=== PATIENT | female | born 1980 | race Two or more races ===

== ENCOUNTER 2016-07-04 01:48 | Emergency (ER) | payer OTHER ==
--- NOTE | 2016-07-04 02:30 | CPEKG ---
Heart Rate: 114 RR Interval: 526 P-R Interval: 140 QRSD Interval: 88 QT Interval: 340 QTC Interval: 469 P Ewing: 77 QRS Ewing: 0 T Wave Ewing: 58 EKG Severity - ABNORMAL ECG - EKG Impression: SINUS TACHYCARDIA Electronically Signed By: Elda Sullivan 04-Jul-2016 06:37:50
[2016-07-04 02:36] LABS: ANION GAP 14 mEq/L (8-16); CALCIUM 9.2 mg/dL (8.5-10.4); CARBON DIOXIDE 19 mEq/l (22-31); CHLORIDE 109 mEq/L (97-110); CREATININE 0.5 mg/dL (0.6-1.0); GLOMERULAR FILTRATION RATE > 60; GLUCOSE 118 mg/dL (70-100); POTASSIUM 4.4 mEq/L (3.5-5.2); SODIUM 142 mEq/L (134-144)
[2016-07-04] MEDS ORDERED: ONDANSETRON 4 MG/2 ML VIAL ONE (02:43)
[2016-07-04 02:44] LABS: % IMMATURE GRANULYOCYTES 0.2 % (0.0-1.1); ABSOLUTE IMMATURE GRANULOCYTES 0.02 10^3/uL (0.00-0.10); ADD DIFF? NO; ADD MORPH? NO; ADD SCAN? NO; ATYPICAL LYMPHOCYTE FLAG 0 (0-99); FRAGMENT RBC FLAG 20 (0-99); HEMATOCRIT 33.6 % (38.0-47.0); HEMOGLOBIN 10.4 g/dL (12.6-16.3); LEFT SHIFT FLG 0 (0-99); LIPEMIA HEMOLYSIS FLAG 80 (0-99); MEAN CELL HEMOGLOBIN 22.5 pg (27.9-34.1); MEAN CELL VOLUME 72.7 fL (81.5-99.8); MEAN PLATELET VOLUME 9.9 fL (8.7-11.7); PLATELET CLUMPS FLAG 10 (0-99); PLATELET COUNT 250 10^3/uL (150-400); RED BLOOD CELL COUNT 4.62 10^6/uL (4.18-5.33); RED CELL DISTRIBUTION WIDTH 18.8 % (11.5-15.2)
[2016-07-04 02:48] LABS: TROPONIN I 0.018 ng/mL (0-0.034)
[2016-07-04] MEDS ORDERED: ONDANSETRON 4 MG/2 ML VIAL IVP ONE (02:54)
[2016-07-04 03:48] LABS: COLOR PALE YELLOW; LEUKOCYTE ESTERASE,URINE NEGATIVE (NEGATIVE); NITRITE,URINE NEGATIVE (NEGATIVE)
[2016-07-04] MEDS ORDERED: IOPAMIDOL (ISOVUE-300) 50 ML VIAL IV ONE (03:54)
--- NOTE | 2016-07-04 04:14 | EDPHY ---
[id number] 02:21 HPI/ROS: Faroese [employer] interpreter used. HPI The patient presents with 3 days of sharp abdominal and back pain which is left- sided and has been intermittent though was worse tonight to the point that she could not sleep and this is what brought her in. She says the pain started slowly and began in her back but is now radiating forwards toward her abdomen. She cannot describe any alleviating or exacerbating factors. She has no history of similar. She does not have any dysuria or hematuria. She has not had a fever, shortness of breath, chest pain or cough. She was seen at [facility] yesterday and did not have testing performed.. REVIEW OF SYSTEMS Constitutional: No fever, no chills. Eyes: No discharge. ENT: No sore throat. Cardiovascular: No chest pain, no palpitations. Respiratory: No cough, no shortness of breath. Gastrointestinal: See HPI Genitourinary: No hematuria. Musculoskeletal: No back pain. Skin: No rashes. Neurological: No headache. PMHx: Healthy, no diabetes, no hypertension Soc Hx: No alcohol use PHYSICAL General Appearance: Alert, no distress Eyes: Pupils equal and round no pallor or injection ENT, Mouth: Mucous membranes moist Respiratory: There are no retractions, lungs are clear to auscultation Cardiovascular: Regular rate and rhythm Gastrointestinal: Abdomen is soft and non-tender, no masses, bowel sounds normal Back: Left-sided flank tenderness, no rash Neurological: A&O, moves all extremities Skin: Warm and dry, no rashes Musculoskeletal: Neck is supple non tender Extremities: symmetrical, full range of motion Psychiatric: Patient is oriented X 3, there is no agitation Source: Patient Exam Limitations: No limitations - Personal History LMP (Females 10-55): 15-21 Days Ago Current Tetanus/Diphtheria Vaccine: Yes - Medical/Surgical History Hx Asthma: No Hx Chronic Respiratory Disease: No Hx Diabetes: No Hx Cardiac Disease: No Hx Renal Disease: No Hx Cirrhosis: No Hx Alcoholism: No Hx HIV/AIDS: No Hx Splenectomy or Spleen Trauma: No Other PMH: DENIES SURG - Social History Smoking Status: Never smoked Constitutional: Initial Vital Signs Temperature (C) 37.3 C 07/04/16 01:57 Heart Rate 110 H 07/04/16 01:57 Respiratory Rate 22 H 07/04/16 01:57 Blood Pressure 109/89 H 07/04/16 01:57 O2 Sat (%) 95 07/04/16 01:57 O2 Delivery Mode Room Air O2 (L/minute) 2 Allergies/Adverse Reactions: No Known Allergies Allergy (Unverified 07/04/16 01:57) Home Medications: Medication Instructions Recorded Naproxen 500 mg PO BID #30 tablet 07/04/16 Medical Decision Making - Diagnostics EKG Interpretation: EKG: Complete interpretation has been separately recorded in the [facility] archive. Summary impression: Sinus tachycardia Imaging: Chest x-ray two view interpreted by me shows no infiltrate, no pneumothorax, radiology interpretation is pending. Differential Diagnosis: This is a healthy 35-year-old woman who presents from home with left-sided flank and abdominal pain for the last 3 days, getting progressively worse. Differential diagnosis includes nephrolithiasis, pyelonephritis, diverticulitis. - Data Points Laboratory Results: Laboratory Results 07/04/16 02:35 07/04/16 02:05 07/04/16 07/04/16 07/04/16 02:35 02:23 02:05 WBC 9.33 10^3/uL TNP (3.80-9.50) RBC 4.62 10^6/uL TNP (4.18-5.33) Hgb 10.4 L g/dL TNP (12.6-16.3) Hct 33.6 L % TNP (38.0-47.0) MCV 72.7 L fL TNP (81.5-99.8) MCH 22.5 L pg TNP (27.9-34.1) MCHC 31.0 L g/dL TNP (32.4-36.7) RDW 18.8 H % TNP (11.5-15.2) Plt Count 250 10^3/uL TNP (150-400) MPV 9.9 fL TNP (8.7-11.7) Neut % (Auto) 83.0 H % TNP (39.3-74.2) Lymph % (Auto) 10.8 L % TNP (15.0-45.0) [place]fer[place] % (Auto) 5.6 % TNP (4.5-13.0) Eos % (Auto) 0.1 L % TNP (0.6-7.6) Baso % (Auto) 0.3 % TNP (0.3-1.7) Nucleat RBC Rel Count 0.0 % TNP (0.0-0.2) Absolute Neuts (auto) 7.74 H 10^3/uL TNP (1.70-6.50) Absolute Lymphs (auto) 1.01 10^3/uL TNP (1.00-3.00) Absolute Monos (auto) 0.52 10^3/uL TNP (0.30-0.80) Absolute Eos (auto) 0.01 L 10^3/uL TNP (0.03-0.40) Absolute Basos (auto) 0.03 10^3/uL TNP (0.02-0.10) Absolute Nucleated RBC 0.00 10^3/uL TNP (0-0.01) Immature Gran % 0.2 % TNP (0.0-1.1) Immature Gran # 0.02 10^3/uL TNP (0.00-0.10) Sodium 142 mEq/L (134-144) Potassium 4.4 mEq/L (3.5-5.2) Chloride 109 mEq/L (97-110) Carbon Dioxide 19 L mEq/l (22-31) Anion Gap 14 mEq/L (8-16) BUN 10 mg/dL (7-23) Creatinine 0.5 L mg/dL (0.6-1.0) Estimated GFR > 60 Glucose 118 H mg/dL (70-100) Calcium 9.2 mg/dL (8.5-10.4) Troponin I 0.018 ng/mL (0-0.034) Beta HCG, Qual NEGATIVE Urine Color PALE YELLOW Urine Appearance CLEAR Urine pH 5.0 (5.0-7.5) Ur Specific [place] 1.005 (1.002-1.030) Urine Protein NEGATIVE (NEGATIVE) Urine Ketones 1+ H (NEGATIVE) Urine Blood 1+ H (NEGATIVE) Urine Nitrate NEGATIVE (NEGATIVE) Urine Bilirubin NEGATIVE (NEGATIVE) Urine Urobilinogen NEGATIVE EU (0.2-1.0) Ur Leukocyte Esterase NEGATIVE (NEGATIVE) Urine RBC 5-10 H /hpf (0-3) Urine WBC 1-3 /hpf (0-3) Ur Epithelial Cells TRACE /lpf (NONE-1+) Ur Culture Indicated? NOT INDICATED (NI) Urine Glucose NEGATIVE (NEGATIVE) Medications Given: Discontinued Medications Morphine Sulfate (Morphine) 4 mg IVP EDNOW ONE Stop: 07/04/16 02:55 Last Admin: 07/04/16 02:55 Dose: 4 mg Ondansetron HCl (Zofran) 4 mg IVP EDNOW ONE Stop: 07/04/16 02:55 Last Admin: 07/04/16 02:55 Dose: 4 mg Departure - Departure Disposition: Home, Routine, Self-Care Clinical Impression: Left flank pain Condition: Good Instructions: Flank Pain (ED) Additional Instructions: Por favor asegrese de francisco muchos lquidos y francisco la medicacin segn sea necesario para el dolor. Debe vigilar roy piel para kevin erupcin cutnea y si ve kevin, realice un seguimiento con roy mdico habitual. No est juan pablo cul es la causa de roy dolor, sin embargo, hemos encontrado que roy tomografa computarizada de roy abdomen es normal, roy radiografa de trax es normal, y janet anlisis de chris se robin david. Hemos encontrado que usted tiene anemia leve y usted debe hacer un seguimiento con roy mdico regular para esto dentro del pr ximo. Please make sure to drink plenty of fluids and take the medication as needed for pain. You should watch your skin for a rash and if you see one, follow up with your regular doctor. It is not clear what is causing your pain, however, we have found that your CT scan of your abdomen is normal, your chest x ray is normal, and your blood tests look good. We have found that you have mild anemia and you should follow up with your regular doctor for this within the next month Referrals: June Perla PA [Primary Care Provider] - As per Instructions Prescriptions: Naproxen 500 mg PO BID #30 tablet Print Language: Faroese
[2016-07-04 06:11] VITALS: BP 107/76; PULSE 91; RESP 16; TEMP 98.4; O2SAT 96
--- NOTE | 2016-07-04 08:12 | DX ---
PA and Lateral Chest July 04, 2016 Clinical Indications: Chest pain and shortness of breath. Findings: The lungs are clear, and no masses are found. The heart and pulmonary vessels are normal. There are no pleural effusions and no pneumothorax. The bones are unremarkable for this age. Impression: Normal.
--- NOTE | 2016-07-04 09:44 | CT ---
CT Scan of the Abdomen and Pelvis (With Contrast) July 04, 2016 Indication: Left flank pain and hematuria. Technique: No oral or rectal contrast. 90 mL of Isovue-300 were given intravenously by machine power injection. Multidetector helical CT imaging was performed from the diaphragm to the symphysis pubis . Dose reduction techniques were utilized. Findings: Normal kidneys. No striated nephrogram, perinephric edema, nephrolithiasis, ureteral calcul i, or hydroureteronephrosis. The urinary bladder, uterus, and ovaries are normal. No free fluid, abscess, pneumoperitoneum, lymphadenopathy, or mass. The bowel pattern is normal with the exception of constipation. The appendix is normal. The liver, spleen, pancreas, gallbladder, adrenal glands, and abdominal aorta are normal. The lung ba ses are clear. Minimal multilevel degenerative disk disease. No compression fracture or bone lesion. Sebaceous cyst along the left flank near the left 12th rib measures 12 mm. Impressions 1. No nephrolithiasis, ureteral calculi, or hydroureteronephrosis. No explanation for flank pain and hematuria. 2. No acute intraabdominal inflammatory process. The study was performed as an emergency on-call case and discussed by telephone with [place], the repres entative for Dr. Sullivan, at 5:15 a.m. The final interpretation is concordant with the original communication.
[2016-07-05 17:36] LABS: % SATURATION 10 % (20-55); TOTAL IRON BINDING CAPACITY 485 ug/dL (260-490)
[2016-07-05 18:04] LABS: FERRITIN - BCH 5.1 ng/mL (6.2-264.0)
== END 2016-07-04 06:11 | disposition home or self-care (01) ==
DX: R10.9 Unspecified abdominal pain (principal)
CPT/HCPCS: 96374; J2405; Q9967